=== PATIENT | female | born 1960 | race African-American/Black ===

== ENCOUNTER → 2017-05-29 | Outpatient (CLI) | payer BC, OTHER ==
[2017-05-29 19:21] LABS: BASOPHILS % (AUTO) 0.8 %; EOSINOPHILS # (AUTO) 0.1 10^3/uL (0.0-0.7); EOSINOPHILS % (AUTO) 2.9 %; HCT - HEMATOCRIT 39.4 % (37.0-47.0); HGB - HEMOGLOBIN 13.1 g/dL (12.0-16.0); LYMPHOCYTES # (AUTO) 1.4 10^3/uL (1.5-3.5); LYMPHOCYTES % (AUTO) 35.6 %; MEAN CORPUSCULAR HEMOGLOBIN 28.4 pg (27.0-31.0); MEAN CORPUSCULAR HGB CONC 33.2 g/dL (32.0-36.0); MEAN CORPUSCULAR VOLUME 85.6 fL (81.0-99.0); MEAN PLATELET VOLUME 8.7 fL (7.9-10.8); MONOCYTES # (AUTO) 0.3 10^3/uL (0.0-1.0); MONOCYTES % (AUTO) 8.2 %; NEUTROPHILS % (AUTO) 52.5 %; RED CELL DISTRIBUTION WIDTH 15.4 % (12.0-15.0); UNCORRECTED WHITE BLOOD COUNT 3.8 x10^3/uL; WHITE BLOOD COUNT 3.8 x10^3/uL (4.8-10.8)
[2017-05-29 19:44] LABS: ALBUMIN/GLOBULIN RATIO 1.2 (1.0-2.2); BILIRUBIN,TOTAL 0.7 mg/dL (0.2-1.0); BUN - BLOOD UREA NITROGEN 16 mg/dL (6-20); CARBON DIOXIDE - CO2 29 mmol/L (21-32); CHLORIDE 106 mmol/L (101-111); CHOL/HDL RATIO 3.3 (<4.4); CHOLESTEROL 202 mg/dL; CREATININE 0.8 mg/dL (0.4-1.0); GFR - MDRD 74 (>89); GLUCOSE 95 mg/dL (70-100); HDL CHOLESTEROL 61 mg/dL; LDL/HDL RATIO 2.2 (<4.4); POTASSIUM 3.4 mmol/L (3.5-5.0); SODIUM 142 mmol/L (135-145); TOTAL PROTEIN 7.1 g/dL (6.7-8.2); TRIGLYCERIDES 46 mg/dL; VLDL CHOLESTEROL 9 mg/dL
== END ==
LOC: LAB.WCP 08:24
PROVIDERS: ATTEND Family Medicine
DX: E66.9 Obesity, unspecified (principal); I10 Essential (primary) hypertension; F32.9 Major depressive disorder, single episode, unspecified; F90.0 Attention-deficit hyperactivity disorder, predominantly inattentive type; M51.86 Other intervertebral disc disorders, lumbar region
CPT/HCPCS: 36415; 80053; 80061; 84443; 85025

== ENCOUNTER 2017-06-12 19:39 | Emergency (ER) | payer BC, OTHER ==
[2017-06-12 19:53] VITALS: BP 171/100
--- NOTE | 2017-06-12 20:27 | ED Physician Documentation ---
PD HPI OPHTHO - Stated complaint Stated Complaint: SWOLLENS LEFT EYE - Chief complaint Chief Complaint: Heent - History obtained from History obtained from: Patient - History of Present Illness Timing - onset: Enter time (19:00), Today Timing - details: Abrupt onset Location: Left Quality / character: Burning Associated symptoms: Redness, Tearing Contributing factors: Chemical exposure, base Recently seen: Not recently seen - Additional information Additional information: approximately 7 PM tonight, patient was using chemical product on her hair ( "hair relaxant"; per patient, contains lye) when some of this got into her left eye. C/O burning pain, tearing Review of Systems Eyes: reports: Irritation. denies: Loss of vision, Decreased vision, Photophobia, Discharge PD PAST MEDICAL HISTORY - Past Medical History Cardiovascular: Hypertension Endocrine/Autoimmune: HyPOthyroidism - Present Medications Home Medications: Ambulatory Orders Medication Instructions Recorded Confirmed Escitalopram [Lexapro] 10 mg PO DAILY 06/12/17 06/12/17 Hydrochlorothiazide 25 mg PO ONCE 06/12/17 06/12/17 Levothyroxine [Synthroid] 75 mcg PO QDAC 06/12/17 06/12/17 Losartan [Cozaar] 50 mg PO DAILY 06/12/17 06/12/17 cloNIDine [Catapres] 0.1 mg PO ONCE 06/12/17 06/12/17 - Allergies Allergies/Adverse Reactions: Allergies Allergy/AdvReac Type Severity Reaction Status Date / Time No Known Drug Allergies Allergy Verified 06/12/17 19:53 PD ED PE NORMAL - Vitals Vital signs reviewed: Yes - General General: Alert and oriented X 3, No acute distress, Well developed/nourished - HEENT HEENT: PERRL, EOMI PD ED PE EXPANDED - HEENT HEENT: PERRL, EOMI - Eyes Eyes: Injected conj/sclera (mild left conjunctival injection) Results - Vitals Vitals: Vital Signs - 24 hr 06/12/17 19:42 Temperature 36.0 C L Heart Rate 78 Respiratory 16 Rate Blood Pressure 171/100 H O2 Saturation 98 Oxygen O2 Source Room air PD MEDICAL DECISION MAKING - ED course Complexity details: re-evaluated patient, considered differential, d/w patient ED course: pH (using Hydrion test paper) of left eye is 8-9 range after 1.5 liters irrigation (poison control recommended not using Lew lens). After another 1 liter irrigation (NS), repeat pH testing was 7-8 range. Patient felt well and was thus discharged. Departure - Departure Disposition: 01 Home, Self Care Clinical Impression: Chemical exposure of eye Condition: Good Instructions: ED Chemical Conjunctivitis Follow-Up: Gonsalo Carey MD [Primary Care Provider] - Discharge Date/Time: 06/12/17 21:27
== END 2017-06-12 21:27 | disposition home or self-care (01) ==
LOC: ED 19:39
DX: Z77.098 Contact with and (suspected) exposure to other hazardous, chiefly nonmedicinal, chemicals (principal); I10 Essential (primary) hypertension
CPT/HCPCS: 99283

== ENCOUNTER 2017-10-04 09:29 | Outpatient (CLI) | payer BC, OTHER ==
[2017-10-04 13:24] LABS: BASOPHILS % (AUTO) 0.9 %; EOSINOPHILS # (AUTO) 0.1 10^3/uL (0.0-0.7); EOSINOPHILS % (AUTO) 3.5 %; HGB - HEMOGLOBIN 13.3 g/dL (12.0-16.0); LYMPHOCYTES # (AUTO) 1.6 10^3/uL (1.5-3.5); MEAN CORPUSCULAR HEMOGLOBIN 28.4 pg (27.0-31.0); MEAN CORPUSCULAR HGB CONC 34.2 g/dL (32.0-36.0); MEAN CORPUSCULAR VOLUME 82.9 fL (81.0-99.0); MEAN PLATELET VOLUME 8.7 fL (7.9-10.8); MONOCYTES # (AUTO) 0.3 10^3/uL (0.0-1.0); MONOCYTES % (AUTO) 8.6 %; NEUTROPHILS # (AUTO) 1.5 10^3/uL (1.5-6.6); NUCLEATED RED BLOOD CELLS AUTO 0.1 /100WBC; RED CELL DISTRIBUTION WIDTH 13.7 % (12.0-15.0); UNCORRECTED WHITE BLOOD COUNT 3.5 x10^3/uL; WHITE BLOOD COUNT 3.5 x10^3/uL (4.8-10.8)
[2017-10-04 13:47] LABS: ALBUMIN/GLOBULIN RATIO 1.2 (1.0-2.2); BILIRUBIN,TOTAL 0.5 mg/dL (0.2-1.0); BUN - BLOOD UREA NITROGEN 18 mg/dL (6-20); CALCIUM 9.1 mg/dL (8.5-10.3); CARBON DIOXIDE - CO2 27 mmol/L (21-32); CHLORIDE 105 mmol/L (101-111); CHOL/HDL RATIO 3.5 (<4.4); CHOLESTEROL 190 mg/dL; CREATININE 0.8 mg/dL (0.4-1.0); GFR - MDRD 90 (>89); GLUCOSE 111 mg/dL (70-100); HDL CHOLESTEROL 54 mg/dL; IRON 68 ug/dL (28-170); LDL/HDL RATIO 2.2 (<4.4); POTASSIUM 2.8 mmol/L (3.5-5.0); SODIUM 138 mmol/L (135-145); TOTAL IRON BINDING CAPACITY 344 ug/dL (250-450); TOTAL PROTEIN 7.3 g/dL (6.7-8.2); TRANSFERRIN 246 mg/dL (192-382); TRIGLYCERIDES 84 mg/dL; VLDL CHOLESTEROL 17 mg/dL
[2017-10-04 13:59] LABS: THYROID STIMULATING HORMONE 0.25 uIU/mL (0.34-5.60)
[2017-10-04 14:07] LABS: FERRITIN 36.6 ng/mL (11.0-306.8)
[2017-10-04 14:11] LABS: HEMOGLOBIN A1C 0.69 g/dL; INR 1.1 (0.8-1.2)
== END 2017-10-04 09:30 | disposition home or self-care (01) ==
LOC: LAB.WCP 09:29
PROVIDERS: ATTEND Surgery
DX: E46 Unspecified protein-calorie malnutrition (principal); E63.9 Nutritional deficiency, unspecified
CPT/HCPCS: 36415; 80053; 80061; 82306; 82607; 82728; 82746; 83036; 83540; 84425; 84443; 84466; 84481; 85025; 85610; 85730

== ENCOUNTER 2017-12-20 08:00 | Outpatient (CLI) | payer BC, OTHER ==
[2017-12-20 19:05] LABS: ALBUMIN 3.9 g/dL (3.2-5.5); ALBUMIN/GLOBULIN RATIO 1.2 (1.0-2.2); ALKALINE PHOSPHATASE 58 IU/L (42-121); ALT ALANINE AMINOTRANSFERASE 37 IU/L (10-60); AST ASPARTATE AMINOTRANSFERASE 29 IU/L (10-42); BILIRUBIN,TOTAL 0.7 mg/dL (0.2-1.0); BUN - BLOOD UREA NITROGEN 18 mg/dL (6-20); CALCIUM 9.2 mg/dL (8.5-10.3); CARBON DIOXIDE - CO2 26 mmol/L (21-32); CHLORIDE 102 mmol/L (101-111); CREATININE 0.7 mg/dL (0.4-1.0); GFR - MDRD 105 (>89); GLUCOSE 91 mg/dL (70-100); SODIUM 138 mmol/L (135-145); TOTAL PROTEIN 7.2 g/dL (6.7-8.2)
[2017-12-20 19:18] LABS: THYROID STIMULATING HORMONE 0.17 uIU/mL (0.34-5.60)
[2017-12-20 20:16] LABS: FREE T4 (FREE THYROXINE) 0.96 ng/dL (0.58-1.64)
== END 2017-12-20 08:01 | disposition home or self-care (01) ==
LOC: LAB.WCP 08:00
PROVIDERS: ATTEND Physician Assistant Medical
DX: I10 Essential (primary) hypertension (principal); E04.1 Nontoxic single thyroid nodule
CPT/HCPCS: 36415; 80053; 84439; 84443

== ENCOUNTER 2018-03-13 13:02 | Outpatient (CLI) | payer BC, OTHER | END 2018-03-13 13:03 | disposition home or self-care (01) | LOC: SC 13:02 | PROVIDERS: ATTEND Internal Medicine Pulmonary Disease | DX: G47.33 Obstructive sleep apnea (adult) (pediatric) (principal) | CPT/HCPCS: 99203; 99212 ==

== ENCOUNTER 2018-07-16 19:11 | Outpatient (CLI) | payer BC, OTHER | END 2018-07-16 19:12 | disposition home or self-care (01) | LOC: SC 19:11 | PROVIDERS: ATTEND Internal Medicine Pulmonary Disease | DX: G47.33 Obstructive sleep apnea (adult) (pediatric) (principal) | CPT/HCPCS: 95810 ==

== ENCOUNTER 2018-07-26 14:16 | Outpatient (CLI) | payer BC, OTHER | END 2018-07-26 14:17 | disposition home or self-care (01) | LOC: SC 14:16 | PROVIDERS: ATTEND Internal Medicine Pulmonary Disease | DX: G47.33 Obstructive sleep apnea (adult) (pediatric) (principal) | CPT/HCPCS: 99212; 99213 ==

== ENCOUNTER 2018-08-15 13:42 | Outpatient (CLI) | payer BC, OTHER ==
[2018-08-15 19:47] LABS: CALCIUM 9.2 mg/dL (8.5-10.3); CREATININE 0.7 mg/dL (0.4-1.0)
== END 2018-08-15 13:43 | disposition home or self-care (01) ==
LOC: LAB.WCP 13:42
PROVIDERS: ATTEND Family Medicine
DX: I10 Essential (primary) hypertension (principal); Z86.79 Personal history of other diseases of the circulatory system
CPT/HCPCS: 36415; 80048

== ENCOUNTER 2018-11-01 08:00 | Outpatient (CLI) | payer BC, OTHER ==
[2018-11-01 13:29] LABS: CALCIUM 9.1 mg/dL (8.5-10.3); CREATININE 0.8 mg/dL (0.4-1.0)
[2018-11-01 13:47] LABS: THYROID STIMULATING HORMONE 0.9 uIU/mL (0.34-5.60)
[2018-11-01 13:49] LABS: FREE T4 (FREE THYROXINE) 1.16 ng/dL (0.58-1.64)
== END 2018-11-01 23:59 | disposition home or self-care (01) ==
LOC: LAB.WCP 08:00
PROVIDERS: ATTEND Family Medicine
DX: I10 Essential (primary) hypertension (principal); E03.9 Hypothyroidism, unspecified
CPT/HCPCS: 36415; 80048; 82088; 84244; 84439; 84443

== ENCOUNTER 2018-11-17 11:32 | Outpatient (CLI) | payer BC, OTHER ==
[2018-11-17] MEDS ORDERED: IOVERSOL 320 100 ML VIAL IVP ONE ×2 (12:11)
--- NOTE | 2018-11-19 12:39 | CT Report ---
Reason: HYPERALDOSTERONISM, HYPOKALEMIA, HTN Procedure Date: 11/17/2018 Accession Number: [id number] / [id number] Procedure: CT - Abdomen/Pelvis W/WO CPT Code: FULL RESULT: EXAM: CT ABDOMEN WITHOUT AND WITH CONTRAST EXAM DATE: 11/17/2018 12:33 PM. HISTORY: Hyperaldosteronism, hypokalemia, hypertension. COMPARISON: None. TECHNIQUE: Routine helical CT imaging was performed through the abdomen before and after administration of IV contrast: Optiray 320 100mL. Adrenal mass protocol was used. Enteric contrast: No. Reconstruction: Coronal and sagittal. In accordance with CT protocol optimization, one or more of the following dose reduction techniques were utilized for this exam: automated exposure control, adjustment of mA and/or KV based on patient size, or use of iterative reconstructive technique. FINDINGS: Lung Bases: Unremarkable. Liver: Normal. No masses. Gallbladder/Bile Ducts: Unremarkable. Spleen: Normal. Pancreas: Normal. No masses or ductal obstruction. Adrenal Glands: There is a 1.9 x 1.2 cm left adrenal nodule with slight enhancement. Hounsfield units are supportive of adenoma. Kidneys: Bilateral renal cysts. No masses or hydronephrosis. Peritoneal Cavity/Bowel: Normal. No free fluid, free air or adenopathy. No masses or acute inflammatory process. Vasculature: No aneurysms or other significant abnormality. Bones: 5 mm anterolisthesis of L4 on L5. Other: None. IMPRESSION: 1.9 cm left adrenal nodule, noncontrast Hounsfield units are compatible with imaging criteria for adenoma. Given the provided history, this potentially represents a functional adrenal adenoma. Invasive image-guided adrenal vein sampling by IR can be used if endocrinology workup is inconclusive regarding primary versus secondary hyperaldosteronism and/or lateralization as necessary for surgical planning. RADIA
== END 2018-11-17 11:33 | disposition home or self-care (01) ==
LOC: DI 11:32
PROVIDERS: ATTEND Family Medicine
DX: D35.02 Benign neoplasm of left adrenal gland (principal); E26.9 Hyperaldosteronism, unspecified; E87.6 Hypokalemia; R03.0 Elevated blood-pressure reading, without diagnosis of hypertension
CPT/HCPCS: 74178; Q9967

== ENCOUNTER 2019-08-20 10:44 | Outpatient (CLI) | payer BC, OTHER ==
--- NOTE | 2019-08-20 11:18 | SLEEP CARE CONSULTATION ---
Information from patient questionnaire entered by Jeny Cutler. I have reviewed and concur with the information entered by Jeny Cutler. This document represents the service I personally performed and the decisions made by me, Roger Roldan MD, [facility]. History of Present Illness Previous diagnosis: Mild, Obstructive Sleep Apnea-Hypopnea Syndrome AHI: 8.1 Reason for CPAP/BiPAP follow up: annual Equipment type: CPAP Equipment obtained from: [facility] Prior sleep studies: Yes Year and Where: 2017 [facility] HPI additional information: HPI: Ms. Mayes returned today for follow up of nasal CPAP therapy. She was diagnosed to have mild obstructive sleep apnea-hypopnea syndrome. The patient wears with a nasal mask. She reports using the device nightly and all through the night. The compliance data show usage in 179 out of the past 180 nights, averaging 5.6 hours a night. She complained of no particular problem with the device such as soreness on the face, dry nose, epistaxis, nasal congestion or headache. She thinks that the pressure of 5 - 15 is comfortable. On the CPAP therapy she notices improvement in her sleep quality, and that she wakes up feeling fresher in the morning and more awake/alert during the day. The Lane Sleepiness Scale score 3. Her notices no snore at all. The average residual AHI is 3.5; and average time in large leak per day is 14.5 minutes. The 90th percentile pressure is 14.6 cmH2O. CPAP Compliance Data - Data Reviewed with Patient Average duration of nightly device use: 5h 39m Compliance rate %: 79.4 Current pressure setting (cmH2O): 5-15 Humidity settin Heated hose settin Subjective Current pressure setting perceived as: comfortable Initial Lane Sleepiness Scale score: [address] Sleepiness Scale score: 3 Allergies and Home Medications Drug allergies reviewed: Yes Home medication list reviewed: Yes Allergy and home medication list: Meds: Adderall, levothyroxine, Lexapro, losartan, amlodipine, clonidine, potassium chloride Review of Systems Review of systems same as previous: Yes Physical Exam Height: 5 ft 2.5 in Weight: 297 lb Body Mass Index: 53.4 BMI Classification: Obesity Class 3 Nasal exam: positive: other. negative: scabs Mood/affect: normal Impression and Plan IMPRESSION: 1. Obstructive Sleep Apnea-Hypopnea Syndrome, mild, with the patient continuing to do well on nasal CPAP therapy. She has excellent compliance and significant clinical improvement. The current pressure appears effective and comfortable. Overall, she is very satisfied with treatment and plans to continue with it long-term. No adjustment is necessary today. PLAN: 1. Continue with autoCPAP set at 5 - 15 cmH2O. 2. Try to lose weight. Bariatric surgery appears indicated. 3. Try ResMed N30i mask and Respironics DreamWear nasal cushion mask. 4. Return in one year for follow up or earlier if there is any problem with the treatment. I spent 100% of this 20 minute visit face to face with the patient with greater than 50% of this was spent time counseling the patient and coordination of care.
== END 2019-08-20 10:45 | disposition home or self-care (01) ==
LOC: SC 10:44
PROVIDERS: ATTEND Internal Medicine Pulmonary Disease
DX: G47.33 Obstructive sleep apnea (adult) (pediatric) (principal); E66.9 Obesity, unspecified; Z68.43 Body mass index [BMI] 50.0-59.9, adult
CPT/HCPCS: 99212; 99213

== ENCOUNTER 2019-11-05 08:00 | Outpatient (CLI) | payer BC, OTHER ==
[2019-11-05 14:53] LABS: ALBUMIN 4.1 g/dL (3.2-5.5); ALBUMIN/GLOBULIN RATIO 1.2 (1.0-2.2); BILIRUBIN,TOTAL 0.9 mg/dL (0.2-1.0); CREATININE 0.6 mg/dL (0.4-1.0); TOTAL PROTEIN 7.6 g/dL (6.7-8.2)
[2019-11-05 15:06] LABS: BASOPHILS % (AUTO) 1.1 %; EOSINOPHILS # (AUTO) 0.1 10^3/uL (0.0-0.7); EOSINOPHILS % (AUTO) 3.6 %; HGB - HEMOGLOBIN 13.5 g/dL (12.0-16.0); LYMPHOCYTES # (AUTO) 1.4 10^3/uL (1.5-3.5); MEAN CORPUSCULAR HGB CONC 30.7 g/dL (32.0-36.0); MEAN PLATELET VOLUME 10.7 fL (7.9-10.8); MONOCYTES # (AUTO) 0.3 10^3/uL (0.0-1.0); MONOCYTES % (AUTO) 8.9 %; NEUTROPHILS # (AUTO) 1.7 10^3/uL (1.5-6.6); NEUTROPHILS % (AUTO) 48.1 %; PLT - PLATELET COUNT 269 10^3/uL (130-450); RED CELL DISTRIBUTION WIDTH 13.6 % (12.0-15.0); WHITE BLOOD COUNT 3.6 x10^3/uL (4.8-10.8)
== END 2019-11-05 23:59 ==
LOC: LAB.WCP 08:00
PROVIDERS: ATTEND Family Medicine
DX: I10 Essential (primary) hypertension (principal); E26.9 Hyperaldosteronism, unspecified; E03.9 Hypothyroidism, unspecified
CPT/HCPCS: 36415; 80053; 84443; 85025

== ENCOUNTER 2019-12-10 11:27 | Outpatient (CLI) | payer BC, OTHER ==
[2019-12-10 19:13] LABS: CALCIUM 9.5 mg/dL (8.5-10.3); CREATININE 0.7 mg/dL (0.4-1.0)
== END 2019-12-10 23:59 | disposition home or self-care (01) ==
LOC: LAB.WCP 11:27
PROVIDERS: ATTEND Family Medicine
DX: E26.9 Hyperaldosteronism, unspecified (principal); E87.6 Hypokalemia; I10 Essential (primary) hypertension
CPT/HCPCS: 36415; 80048

== ENCOUNTER 2020-01-30 10:33 | Outpatient (CLI) | payer BC, OTHER ==
--- NOTE | 2020-01-31 08:57 | Mammography Report ---
Reason: ROUTINE MAMMO Procedure Date: 01/30/2020 Accession Number: [id number] / [id number] Procedure: MARGARETTE - Screening Mammo w/Crow CPT Code: Final Report FULL RESULT: EXAM: Screening Mammo w/Crow DATE: 01/30/2020 1:19 PM CLINICAL HISTORY: Screening encounter. History of benign right breast biopsy. History of early menses. Family history of breast cancer in the mother at the age of 54. TECHNIQUE: (B) - Bilateral CC and MLO views were obtained. COMPARISON: None PARENCHYMAL PATTERN: (F) - The breast(s) demonstrate(s) diffuse fatty replacement. FINDINGS: There are no suspicious masses, calcifications, or areas of distortion. IMPRESSION: Negative examination. BI-RADS category 1. RECOMMENDATION: (ANNUAL) - Recommend routine annual screening mammography. BI-RADS CATEGORY: (1) - Negative. STANDARD QUALIFYING STATEMENTS: 1. This examination was not reviewed with the aid of Computer-Aided Detection (CAD). 2. A negative or benign imaging report should not preclude biopsy if clinically suspicious findings are present. 3. Dense breasts may obscure an underlying neoplasm. 4. This examination was reviewed with the aid of 3D breast imaging (tomosynthesis).
== END 2020-01-30 10:34 | disposition home or self-care (01) ==
LOC: DI 10:33
PROVIDERS: ATTEND Family Medicine
DX: Z12.31 Encounter for screening mammogram for malignant neoplasm of breast (principal); Z80.3 Family history of malignant neoplasm of breast
CPT/HCPCS: 77063; 77067

== ENCOUNTER 2020-02-26 19:10 | Outpatient (CLI) | payer BC, OTHER | END 2020-02-26 19:11 | disposition home or self-care (01) | LOC: COV 19:10 | PROVIDERS: ATTEND Family Medicine | DX: R05 Cough (principal) | CPT/HCPCS: 81599 ==

== ENCOUNTER 2020-08-27 11:24 | Outpatient (CLI) | payer BC, OTHER ==
[2020-08-27 11:27] LABS: BASOPHILS # (AUTO) 0.1 10^3/uL (0.0-0.1); BASOPHILS % (AUTO) 1.2 %; EOSINOPHILS # (AUTO) 0.1 10^3/uL (0.0-0.7); HGB - HEMOGLOBIN 13.5 g/dL (12.0-16.0); LYMPHOCYTES # (AUTO) 1.4 10^3/uL (1.5-3.5); LYMPHOCYTES % (AUTO) 33.9 %; MEAN CORPUSCULAR HEMOGLOBIN 29.3 pg (27.0-31.0); MEAN CORPUSCULAR VOLUME 91.5 fL (81.0-99.0); MEAN PLATELET VOLUME 9.5 fL (7.9-10.8); MONOCYTES # (AUTO) 0.3 10^3/uL (0.0-1.0); MONOCYTES % (AUTO) 8.5 %; NEUTROPHILS # (AUTO) 2.1 10^3/uL (1.5-6.6); NEUTROPHILS % (AUTO) 53.2 %; PLT - PLATELET COUNT 258 10^3/uL (130-450); RED BLOOD COUNT 4.61 10^6/uL (4.20-5.40); RED CELL DISTRIBUTION WIDTH 12.5 % (12.0-15.0)
[2020-08-27 11:47] LABS: ALBUMIN 4.4 g/dL (3.2-5.5); ALBUMIN/GLOBULIN RATIO 1.4 (1.0-2.2); ALKALINE PHOSPHATASE 44 IU/L (42-121); ALT ALANINE AMINOTRANSFERASE 24 IU/L (10-60); AST ASPARTATE AMINOTRANSFERASE 18 IU/L (10-42); BILIRUBIN,TOTAL 0.9 mg/dL (0.2-1.0); BUN - BLOOD UREA NITROGEN 18 mg/dL (6-20); CALCIUM 9.3 mg/dL (8.5-10.3); CARBON DIOXIDE - CO2 26 mmol/L (21-32); CHLORIDE 105 mmol/L (101-111); CHOLESTEROL 217 mg/dL; CREATININE 0.9 mg/dL (0.4-1.0); GLUCOSE 130 mg/dL (70-100); HDL CHOLESTEROL 54 mg/dL; LDL CHOLESTEROL,CALCULATED 146 mg/dL; LDL/HDL RATIO 2.7 (<4.4); SODIUM 140 mmol/L (135-145); TOTAL PROTEIN 7.6 g/dL (6.7-8.2); VLDL CHOLESTEROL 17 mg/dL
--- NOTE | 2020-08-27 15:53 | Ultrasound Report ---
PROCEDURE: Head or Neck Soft Tissue INDICATIONS: THYROID NODULE, POST MENOPAUSAL TECHNIQUE: Real time scanning was performed of the neck region of interest, with image documentation . COMPARISON: None. FINDINGS: There is been a complete thyroidectomy. No suspicious soft tissue nodules in the thyroid be d. No enlarged lymph nodes visible. IMPRESSION: No sonographic evidence of recurrent thyroid nodule. Reviewed by: Juana Valadze MD on 08/27/2020 3:52 PM PDT Approved by: Juana Valadez MD on 08/27/2020 3:52 PM PDT Station ID: [id number]
--- NOTE | 2020-08-27 17:26 | DEXA Report ---
PROCEDURE: Dexa Spine and/or Hip INDICATIONS: THYROID NODULE, POST MENOPAUSAL TECHNIQUE: Dual energy x-ray absorptiometry (DXA) was performed on a [employer] Platform System. Regions measur ed are the AP Spine, femoral neck, and if needed forearm. COMPARISON: None. FINDINGS: Lumbar Spine: Bone Mineral Density 1.376 g/cm/cm,T score 1.6, normal Left Hip: Bone Mineral Density 1.082 g/cm/cm,T score 0.6, normal Left Femoral Neck: Bone Mineral Density 0.902 g/cm/cm, T score -1.0, normal (T score greater or equal to -1.0: NORMAL) (T score from -1.1 to -2.4: OSTEOPENIA) (T score less than or equal to -2.5 to: OSTEOPOROSIS) Impression: Normal bone density. Patients with diagnosis of osteoporosis or osteopenia should have regular bone mineral density assess ment. For those eligible for Medicare, routine testing is allowed once every 2 years. Testing frequ ency can be increased for patients who have rapidly progressing disease or for those who are receivin g medical therapy to restore bone mass. Reviewed by: Aye Kowalski MD, PhD on 08/27/2020 5:25 PM PDT Approved by: Aye Kowalski MD, PhD on 08/27/2020 5:25 PM PDT Station ID: [id number]
== END 2020-08-27 11:25 | disposition home or self-care (01) ==
LOC: DI 11:24
PROVIDERS: ATTEND Physician Assistant Medical
DX: I10 Essential (primary) hypertension (principal); E04.1 Nontoxic single thyroid nodule; E03.9 Hypothyroidism, unspecified; Z78.0 Asymptomatic menopausal state
CPT/HCPCS: 36415; 76536; 77080; 80053; 80061; 83721; 84443; 85025

== ENCOUNTER 2021-03-18 14:14 | Outpatient (CLI) | payer BC, OTHER ==
[2021-03-18 19:06] LABS: ESTIMATED AVERAGE GLUCOSE 143 mg/dL (70-100); HEMOGLOBIN A1c% 6.6 % (4.27-6.07)
[2021-03-18 19:20] LABS: ALBUMIN 4.3 g/dL (3.2-5.5); ALBUMIN/GLOBULIN RATIO 1.3 (1.0-2.2); ALKALINE PHOSPHATASE 43 IU/L (42-121); ALT ALANINE AMINOTRANSFERASE 26 IU/L (10-60); AST ASPARTATE AMINOTRANSFERASE 19 IU/L (10-42); BILIRUBIN,TOTAL 0.7 mg/dL (0.2-1.0); BUN - BLOOD UREA NITROGEN 19 mg/dL (6-20); CALCIUM 9.7 mg/dL (8.5-10.3); CARBON DIOXIDE - CO2 27 mmol/L (21-32); CHLORIDE 106 mmol/L (101-111); CHOL/HDL RATIO 4.6 (<4.4); CHOLESTEROL 230 mg/dL; GFR - MDRD 69 (>89); GLUCOSE 114 mg/dL (70-100); HDL CHOLESTEROL 50 mg/dL; LDL CHOLESTEROL,CALCULATED 165 mg/dL; LDL/HDL RATIO 3.3 (<4.4); POTASSIUM 4.4 mmol/L (3.5-5.0); SODIUM 141 mmol/L (135-145); TOTAL PROTEIN 7.5 g/dL (6.7-8.2); TRIGLYCERIDES 77 mg/dL; VLDL CHOLESTEROL 15 mg/dL
== END 2021-03-18 23:59 | disposition home or self-care (01) ==
LOC: LAB.WCP 14:14
PROVIDERS: ATTEND Physician Assistant Medical
DX: R73.9 Hyperglycemia, unspecified (principal)
CPT/HCPCS: 36415; 80053; 80061; 83036; 83721

== ENCOUNTER 2021-04-12 14:08 | Outpatient (CLI) | payer BC, OTHER ==
--- NOTE | 2021-04-12 17:18 | SLEEP CARE CONSULTATION ---
Information from patient questionnaire entered by Bernadette Garvey. I have reviewed and concur with the information entered by Bernadette Garvey. This document represents the service I personally performed and the decisions made by me, Roger Roldan MD, [facility]. History of Present Illness Service Date and Time: 04/12/2021 1408 Previous diagnosis: Mild, Obstructive Sleep Apnea-Hypopnea Syndrome AHI: 8.1 (in 2018) Reason for follow up: annual (last seen 08/2019) Equipment type: CPAP Equipment obtained from: [facility] Mask style: Nasal Prior sleep studies: Yes Year and Where: 2018 - [facility] Type of Sleep Study: Polysomnography HPI additional information: HPI: Ms. Mayes returned today for annual follow up of nasal CPAP therapy. She was diagnosed to have mild obstructive sleep apnea-hypopnea syndrome. The patient wears with a nasal mask. She continues to use the device nightly and all through the night. The compliance data show usage in 180 out of the past 180 nights, averaging 6.2 hours a night. She complained of cough but no particular problem with the device such as soreness on the face, dry nose, epistaxis, nasal congestion or headache. She thinks that the pressure of 5 - 15 is comfortable. On the CPAP therapy she notices improvement in her sleep quality, and that she wakes up feeling fresher in the morning and more awake/alert during the day. The [place] Sleepiness Scale score 10. The average residual AHI is 3.8; and average time in large leak per day is 22 minutes. The 90th percentile pressure is 15 cmH2O. CPAP Compliance Data - Data Reviewed with Patient Average duration of nightly device use: 6 hr 14 min Compliance rate %: 82.2 (180 days) Current pressure setting (cmH2O): 5-15 Humidity settin Heated hose settin Average residual AHI: 3.8 Average large leak: 22 min 53 sec Subjective Missed days of use due to: reports: family emergency, illness Current pressure setting perceived as: comfortable Initial [place] Sleepiness Scale score: 2 (in 2018) Current [place] Sleepiness Scale score: 10 Allergies and Home Medications Drug allergies reviewed: Yes Home medication list reviewed: Yes Review of Systems Review of systems same as previous: Yes Physical Exam Height: 5 ft 2.5 in Weight: 279 lb Weight change since last visit: -18 Body Mass Index: 50.2 BMI Classification: Morbidly Obese Impression and Plan IMPRESSION: 1. Obstructive Sleep Apnea-Hypopnea Syndrome, mild, with the patient continuing to do well on nasal CPAP therapy. She has excellent compliance and significant clinical improvement. The current pressure appears effective and comfortable. Overall, she is very satisfied with treatment and plans to continue with it long-term. The patient would like to switch durable medical equipment supplier. PLAN: 1. Continue with autoCPAP set at 5 - 15 cmH2O. 2. Try to lose weight. Bariatric surgery appears indicated. 3. Prescription made for CPAP supplies and faxed to [facility]. 4. Return in one year for follow up or earlier if there is any problem with the treatment. Counseling Topics: Weight loss health impact Visit Type: In Office Time Spent with Patient (minutes): 15 Provider Statement: I spent 100% of the Face to Face Visit with the patient with greater than 50% spent counseling the patient and coordination of care.
== END 2021-04-12 14:09 | disposition home or self-care (01) ==
LOC: SC 14:08
PROVIDERS: ATTEND Internal Medicine Pulmonary Disease
DX: G47.33 Obstructive sleep apnea (adult) (pediatric) (principal); E66.01 Morbid (severe) obesity due to excess calories; Z68.43 Body mass index [BMI] 50.0-59.9, adult
CPT/HCPCS: 99212

== ENCOUNTER 2021-05-26 12:34 | Outpatient (CLI) | payer BC, OTHER ==
--- NOTE | 2021-05-26 13:16 | XRAY Report ---
PROCEDURE: Lumbar Spine 2 View INDICATIONS: LUMBAR DISC DISORDER TECHNIQUE: 2 views of the lumbar spine were acquired. COMPARISON: None. FINDINGS: Bones: 5 [id number]-qih-nytizrd vertebrae are present. The lumbar spine has severe facet arthrosis with gr ryan 1 anterolisthesis of L4 over L5. There is disc space narrowing at L4-5. The sacroiliac joints and symphysis pubis have degenerative changes. There is normal bony alignment. No vertebral body compre ssion fractures. No suspicious bony lesions. Soft tissues: Overlying bowel gas pattern is normal. No suspicious soft tissue calcifications. IMPRESSION: 1. Severe facet arthrosis with grade 1 anterolisthesis of L4 over L5. 2. Degenerative disc disease at L4-5. Reviewed by: Dylon Whyte on 05/26/2021 1:15 PM PDT Approved by: Dylon Whyte on 05/26/2021 1:15 PM PDT Station ID: [id number]
== END 2021-05-26 23:59 | disposition home or self-care (01) ==
LOC: DI.N 12:34
PROVIDERS: ATTEND Family Medicine
DX: M47.816 Spondylosis without myelopathy or radiculopathy, lumbar region (principal); M51.36 Other intervertebral disc degeneration, lumbar region; M43.16 Spondylolisthesis, lumbar region; M47.898 Other spondylosis, sacral and sacrococcygeal region

== ENCOUNTER 2021-06-11 14:45 | Outpatient (CLI) | payer BC, OTHER | END 2021-06-11 14:46 | disposition home or self-care (01) | LOC: RT 14:45 | PROVIDERS: ATTEND Psychiatry & Neurology Psychiatry | DX: Z79.899 Other long term (current) drug therapy (principal) | CPT/HCPCS: 93005 ==

== ENCOUNTER 2022-01-18 12:26 | Outpatient (CLI) | payer BC, OTHER ==
[2022-01-18 18:17] LABS: ALBUMIN 4.1 g/dL (3.2-5.5); ALBUMIN/GLOBULIN RATIO 1.2 (1.0-2.2); ALKALINE PHOSPHATASE 40 IU/L (42-121); ALT ALANINE AMINOTRANSFERASE 25 IU/L (10-60); AST ASPARTATE AMINOTRANSFERASE 20 IU/L (10-42); BILIRUBIN,TOTAL 0.7 mg/dL (0.2-1.0); BUN - BLOOD UREA NITROGEN 19 mg/dL (6-20); CALCIUM 9.9 mg/dL (8.5-10.3); CARBON DIOXIDE - CO2 28 mmol/L (21-32); CHLORIDE 106 mmol/L (101-111); CHOL/HDL RATIO 3.7 (<4.4); CHOLESTEROL 203 mg/dL; CREATININE 0.9 mg/dL (0.4-1.0); GFR - MDRD 77 (>89); GLUCOSE 130 mg/dL (70-100); HDL CHOLESTEROL 55 mg/dL; LDL CHOLESTEROL,CALCULATED 137 mg/dL; LDL/HDL RATIO 2.5 (<4.4); POTASSIUM 4.9 mmol/L (3.5-5.0); SODIUM 142 mmol/L (135-145); TOTAL PROTEIN 7.5 g/dL (6.7-8.2); TRIGLYCERIDES 57 mg/dL; VLDL CHOLESTEROL 11 mg/dL
[2022-01-18 18:26] LABS: CREATININE,URINE 234.8 mg/dL; MICROALBUM/CREATININE RATIO,UR 12.8 ug/mg (<30.0)
[2022-01-18 20:43] LABS: ESTIMATED AVERAGE GLUCOSE 143 mg/dL (70-100); HEMOGLOBIN A1c% 6.6 % (4.27-6.07)
== END 2022-01-18 12:27 | disposition home or self-care (01) ==
LOC: LAB.N 12:26
PROVIDERS: ATTEND Physician Assistant Medical
DX: E11.9 Type 2 diabetes mellitus without complications (principal)
CPT/HCPCS: 36415; 80053; 80061; 82043; 82570; 83036; 83721

== ENCOUNTER 2022-03-29 20:15 | Outpatient (CLI) | payer BC, OTHER ==
--- NOTE | 2022-03-30 08:50 | Ultrasound Report ---
PROCEDURE: Duplex Ext Veins Left INDICATIONS: SUPERFICIAL THROMBOPHLEBITIS TECHNIQUE: Real-time imaging, as well as color and pulse Doppler interrogation, were performed of the lower extr emity deep veins from the inguinal ligament to the popliteal fossa. COMPARISON: None. FINDINGS: The deep veins are normally compressible, and free of intraluminal thrombus. Color and pu lse Doppler demonstrate normal phasic intraluminal flow. There is normal augmentation response to di stal compression maneuver. 1.2 x 1.1 x 1.4 cm hypoechoic lesion in the popliteal fossa, which may reflect a Ralph's cyst. IMPRESSION: No evidence of DVT. Reviewed by: Pavel Mitchell MD on 03/30/2022 8:49 AM PDT Approved by: Pavel Mitchell MD on 03/30/2022 8:49 AM PDT Station ID: [id number]
== END 2022-03-29 20:16 | disposition home or self-care (01) ==
LOC: DI 20:15
PROVIDERS: ATTEND Family Medicine
DX: I80.9 Phlebitis and thrombophlebitis of unspecified site (principal)

== ENCOUNTER 2022-09-08 12:27 | Outpatient (CLI) | payer BC, OTHER ==
[2022-09-08 17:58] LABS: ALBUMIN 4.1 g/dL (3.2-5.5); ALBUMIN/GLOBULIN RATIO 1.2 (1.0-2.2); BILIRUBIN,TOTAL 0.6 mg/dL (0.2-1.0); CALCIUM 9.8 mg/dL (8.5-10.3); CREATININE 0.9 mg/dL (0.4-1.0); POTASSIUM 4.3 mmol/L (3.5-5.0); TOTAL PROTEIN 7.4 g/dL (6.7-8.2)
[2022-09-08 20:27] LABS: ESTIMATED AVERAGE GLUCOSE 146 mg/dL (70-100); HEMOGLOBIN A1c% 6.7 % (4.27-6.07)
== END 2022-09-08 12:28 | disposition home or self-care (01) ==
LOC: LAB.N 12:27
PROVIDERS: ATTEND Physician Assistant Medical
DX: E11.9 Type 2 diabetes mellitus without complications (principal)
CPT/HCPCS: 36415; 80053; 83036

== ENCOUNTER 2022-10-17 13:30 | Outpatient (CLI) | payer BC, OTHER ==
[2022-10-17 14:44] VITALS: BP 110/60
--- NOTE | 2022-10-17 14:44 | SLEEP CARE CONSULTATION ---
Information from patient questionnaire entered by Frank Doss. I have reviewed and concur with the information entered by Frank Doss. This document represents the service I personally performed and the decisions made by me, Roger Roldan MD, [facility]. History of Present Illness Service Date and Time: 10/17/2022 1330 Previous diagnosis: Mild, Obstructive Sleep Apnea-Hypopnea Syndrome AHI: 8.1 (in 2018) Reason for follow up: annual (LAST SEEN 03/2021) Equipment type: CPAP (DREAM STATION) Equipment obtained from: [facility] Mask style: Nasal Prior sleep studies: Yes Year and Where: 2017 - [facility] Type of Sleep Study: Polysomnography HPI additional information: Ms. Mayes returned today for annual follow up of nasal CPAP therapy. She was diagnosed to have mild obstructive sleep apnea-hypopnea syndrome. The patient wears with a nasal mask. She continues to use the device nightly and all through the night. Her current device is a [employer] DreamStation 2 which replaces her DreamStation 1 that was recalled. The compliance data show usage in 123 out of the past 180 nights, averaging 6.6 hours a night. There appears to be a 6-week gap between her old and new machines. The patient said she used the old machine all the way up to her new one. She complained of cough but no particular problem with the device such as soreness on the face, dry nose, epistaxis, nasal congestion or headache. She thinks that the pressure of 5 15 cmH2O is comfortable. On the CPAP therapy she notices improvement in her sleep quality, and that she wakes up feeling fresher in the morning and more awake/alert during the day. The [place] Sleepiness Scale score 2 (was 10). The average residual AHI is 5.6; and average time in large leak per day is 1 hour and 12 minutes. The 90th percentile pressure is 15 cmH2O. [employer] is her durable medical supplier. Sleep Study - Results Type of Sleep Study: Polysomnography Prior sleep studies: Yes Year and Where: 2017 - [facility] CPAP Compliance Data - Data Reviewed with Patient Average duration of nightly device use: 6HRS 37MIN 46SEC Compliance rate %: 72.2 (04/14/2022-10/10/2022) Current pressure setting (cmH2O): 5-15 Average residual AHI: 5.6 Subjective Initial [place] Sleepiness Scale score: 2 (in 2018) Current [place] Sleepiness Scale score: 2 (10/17/22) Allergies and Home Medications Drug allergies reviewed: Yes Home medication list reviewed: Yes Allergy and home medication list: Allergies No Known Drug Allergies Allergy (Verified 06/12/17 19:53) Review of Systems Review of systems same as previous: Yes Physical Exam Vital signs obtained and entered by: FRANK Biggs MA Blood Pressure: 110/60 (LEFT ARM) Cuff size: long Heart Rate: 66 O2 Saturation: 99 Height: 5 ft 2.5 in Weight: 266 lb 6.4 oz Body Mass Index: 47.9 BMI Classification: Morbidly Obese Impression and Plan IMPRESSION: 1. Obstructive Sleep Apnea-Hypopnea Syndrome, mild, with the patient continuing to do well on nasal CPAP therapy. She has excellent compliance and significant clinical improvement. The current pressure appears slightly ineffective but comfortable. Overall, she is very satisfied with treatment and plans to continue with it long-term. Because the residual AHI is slightly elevated, I will raise the starting pressure from 5 to 8 cmH2O. She may want to use the ramp. PLAN: 1. Raise the pressure slightly to 8 - 15 cmH2O. 2. Try to lose more weight. 3. Return in one year for follow up or earlier if there is any problem. Adjust device pressure to (cmH2O): 8 - 15 Counseling Topics: Weight control Follow up with Sleep Care in: 1 year Follow up recommended for: Weight management Visit Type: In Office Time Spent with Patient (minutes): 15 Provider Statement: I spent 100% of the Face to Face Visit with the patient with greater than 50% spent counseling the patient and coordination of care.
== END 2022-10-17 13:31 | disposition home or self-care (01) ==
LOC: SC 13:30
PROVIDERS: ATTEND Internal Medicine Pulmonary Disease
DX: G47.33 Obstructive sleep apnea (adult) (pediatric) (principal); E66.01 Morbid (severe) obesity due to excess calories; Z68.42 Body mass index [BMI] 45.0-49.9, adult
CPT/HCPCS: 99212

== ENCOUNTER 2022-10-28 08:00 | Outpatient (CLI) | payer BC, OTHER | END 2022-10-28 23:59 | disposition home or self-care (01) | LOC: LAB.N 08:00 | PROVIDERS: ATTEND Family Medicine | DX: J34.0 Abscess, furuncle and carbuncle of nose (principal) | CPT/HCPCS: 87070; 87077; 87181; 87205 ==

== ENCOUNTER 2023-03-01 10:19 | Outpatient (CLI) | payer BC, OTHER ==
[2023-03-01 11:51] LABS: EOSINOPHILS # (AUTO) 0.1 10^3/uL (0.0-0.7); HCT - HEMATOCRIT 40.6 % (37.0-47.0); HGB - HEMOGLOBIN 12.8 g/dL (12.0-16.0); LYMPHOCYTES # (AUTO) 1.3 10^3/uL (1.5-3.5); MEAN CORPUSCULAR HEMOGLOBIN 28.9 pg (27.0-31.0); MEAN CORPUSCULAR HGB CONC 31.5 g/dL (32.0-36.0); MEAN CORPUSCULAR VOLUME 91.6 fL (81.0-99.0); MEAN PLATELET VOLUME 10.2 fL (7.9-10.8); MONOCYTES # (AUTO) 0.3 10^3/uL (0.0-1.0); MONOCYTES % (AUTO) 8.6 %; NEUTROPHILS # (AUTO) 2.1 10^3/uL (1.5-6.6); NEUTROPHILS % (AUTO) 53.1 %; PLT - PLATELET COUNT 250 10^3/uL (130-450); RED BLOOD COUNT 4.43 10^6/uL (4.20-5.40); WHITE BLOOD COUNT 3.9 x10^3/uL (4.8-10.8)
[2023-03-01 12:07] LABS: ALBUMIN 4.1 g/dL (3.2-5.5); ALBUMIN/GLOBULIN RATIO 1.3 (1.0-2.2); ALKALINE PHOSPHATASE 47 IU/L (42-121); ALT ALANINE AMINOTRANSFERASE 27 IU/L (10-60); AST ASPARTATE AMINOTRANSFERASE 19 IU/L (10-42); BILIRUBIN,TOTAL 0.5 mg/dL (0.2-1.0); BUN - BLOOD UREA NITROGEN 16 mg/dL (6-20); CALCIUM 9.8 mg/dL (8.5-10.3); CARBON DIOXIDE - CO2 28 mmol/L (21-32); CHLORIDE 109 mmol/L (101-111); CHOL/HDL RATIO 2.1 (<4.4); CHOLESTEROL 152 mg/dL; CREATININE 0.9 mg/dL (0.4-1.0); ESTIMATED AVERAGE GLUCOSE 146 mg/dL (70-100); GFR - MDRD 77 (>89); GLUCOSE 146 mg/dL (70-100); HDL CHOLESTEROL 72 mg/dL; HEMOGLOBIN A1c% 6.7 % (4.27-6.07); LDL CHOLESTEROL,CALCULATED 72 mg/dL; POTASSIUM 4.3 mmol/L (3.5-5.0); SODIUM 139 mmol/L (135-145); TOTAL PROTEIN 7.3 g/dL (6.7-8.2); TRIGLYCERIDES 40 mg/dL; VLDL CHOLESTEROL 8 mg/dL
[2023-03-01 12:22] LABS: THYROID STIMULATING HORMONE < 0.08 uIU/mL (0.34-5.60)
[2023-03-01 12:54] LABS: FREE T4 (FREE THYROXINE) 1.21 ng/dL (0.58-1.64)
== END 2023-03-01 10:20 | disposition home or self-care (01) ==
LOC: LAB.N 10:19
PROVIDERS: ATTEND Physician Assistant Medical
DX: E11.9 Type 2 diabetes mellitus without complications (principal); E04.1 Nontoxic single thyroid nodule
CPT/HCPCS: 36415; 80053; 80061; 83036; 83721; 84439; 84443; 85025

== ENCOUNTER 2023-04-06 14:21 | Outpatient (CLI) | payer BC, OTHER ==
[2023-04-06] MEDS ORDERED: iohexoL-300 100 ML VIAL ONE (15:14)
--- NOTE | 2023-04-06 15:15 | MRI Report ---
PROCEDURE: BRAIN WO INDICATIONS: HEADACHE TECHNIQUE: Noncontrast axial T1 spin echo, axial T2 fast spin echo, sagittal and axial FLAIR, coronal T2 fast sp in echo, axial gradient echo, axial diffusion and ADC through the brain. COMPARISON: None. FINDINGS: Image quality: Excellent. CSF Spaces: Basal cisterns are patent. No extra-axial fluid collections. Ventricles are normal in size and shape. Brain: No intracranial masses or hemorrhage. Pires/white matter interface is normal. Brainstem appe ars normal. Diffusion-weighted images demonstrate no acute ischemic insult. No chronic ischemic ins ults. Normal intravascular flow voids are present. Skull and face: Calvarium has normal marrow signal. Orbits appear normal. Sinuses: Sinuses and mastoids are clear. IMPRESSION: 1. No explanation for headache. 2. No acute process. No recent infarct. Reviewed by: Ariela Pizarro MD on 04/06/2023 3:13 PM PDT Approved by: Ariela Pizarro MD on 04/06/2023 3:13 PM PDT Station ID: [id number]
[2023-04-06 15:59] LABS: CREATININE 0.9 mg/dL (0.4-1.0)
[2023-04-06] MEDS ORDERED: iohexoL-300 100 ML VIAL IVP ONE (17:22)
--- NOTE | 2023-04-07 16:20 | Ultrasound Report ---
PROCEDURE: Carotid Doppler Complete INDICATIONS: LIGHTHEADEDNESS TECHNIQUE: Color and pulse Doppler interrogation was performed of both carotid systems, with image documentation and velocity measurements. COMPARISON: None. FINDINGS: Right side: Brachial blood pressure: 133/76 mm Hg. Common carotid artery peak systolic velocity: 80 cm/sec. Internal carotid artery peak systolic velocity: 64 cm/sec. Internal carotid artery end diastolic velocity: 26 cm/sec. External carotid artery peak systolic velocity: 53 cm/sec. ICA/CCA peak systolic ratio: 0.8 . Pires scale imaging description: Mild plaque bifurcates Percent internal carotid artery stenosis: Less than 50%. Vertebral artery: Flow direction is antegrade. Left side: Brachial blood pressure: 131/68 mm Hg. Common carotid artery peak systolic velocity: 73 cm/sec. Internal carotid artery peak systolic velocity: 58 cm/sec. Internal carotid artery end diastolic velocity: 16 cm/sec. External carotid artery peak systolic velocity: 87 cm/sec. ICA/CCA peak systolic ratio: 0.8 . Pires scale imaging description: Mild plaque at the bifurcation Percent internal carotid artery stenosis: Less than 50%. Vertebral artery: Flow direction is antegrade. IMPRESSION: 1. In the right internal carotid artery, there is less than 50% stenosis based on peak systolic veloc ity criteria. 2. In the left internal carotid artery, there is less than 50% stenosis based on peak systolic veloci ty criteria. 3. Antegrade blood flow within the right vertebral artery. 4. Antegrade blood flow within the left vertebral artery. The estimate of stenosis included in the report of the imaging study was calculated using the [facility]-end orsed standards of carotid artery stenosis. Reviewed by: Mona Limon MD on 04/07/2023 4:19 PM PDT Approved by: Mona Limon MD on 04/07/2023 4:19 PM PDT Station ID: [id number]
--- NOTE | 2023-04-10 09:54 | CT Report ---
PROCEDURE: CHEST W INDICATIONS: PULMONARY NODULE CONTRAST: 100mL Omni 300 TECHNIQUE: After the administration of intravenous contrast, 1 mm axial images were acquired from the pulmonary apices through the posterior costophrenic angles. Axial 5 mm soft tissue kernel reconstructions were performed as well as 8 mm axial MIP and coronal and sagittal 5 mm reformations. For radiation dose reduction, the following was used: automated exposure control, adjustment of mA and/or kV according to patient size. COMPARISON: CT 11/17/2018 FINDINGS: Image quality: Excellent. Lungs and pleura: No consolidation. No pleural effusions. No pneumothorax. 7 mm solid nodule in the posterior left upper lobe (series 10, image 33) Mediastinum: Heart size is normal. No pericardial effusions. No mediastinal adenopathy by size criter ia. No large vessel abnormality. Three-vessel coronary calcifications, marked for age Chest wall and lower neck: Thyroid is absent or diminutive. No axillary or supraclavicular adenopathy by size. Bones: No aggressive osseous abnormality. Vertebral hemangioma of the L1 and T8 vertebral bodies. Upper Abdomen: Fluid attenuating renal cysts. 1.5 cm left adrenal nodule which is stable since 2018, therefore statistically benign. IMPRESSION: Note: No chest CT prior was available at time of dictation, despite multiple attempts to obtain prior imaging. If prior imaging becomes available, an addendum can be made to this report. A 7 mm solid nodule in the posterior left upper lobe. Correlate with prior exam, otherwise CT follow- up in 6-12 months is recommended per ACR consensus guidelines. Marked coronary artery calcifications for age. Consider cardiology referral. Reviewed by: Js Thomas on 04/10/2023 8:53 AM C[place] Approved by: Js Thomas on 04/10/2023 8:53 AM C[place] Station ID: [id number]
== END 2023-04-06 14:22 | disposition home or self-care (01) ==
LOC: LAB 14:21
PROVIDERS: ATTEND Physician Assistant Medical
DX: R91.1 Solitary pulmonary nodule (principal); R51.9 Headache, unspecified; I65.23 Occlusion and stenosis of bilateral carotid arteries; I25.10 Atherosclerotic heart disease of native coronary artery without angina pectoris
CPT/HCPCS: 36415; 70551; 71260; 82565; 93880; Q9967

== ENCOUNTER 2023-04-06 14:23 | Outpatient (CLI) | payer BC, OTHER ==
--- NOTE | 2023-04-07 11:29 | Mammography Report ---
BILATERAL DIGITAL SCREENING MAMMOGRAM 3D/2D: 04/06/2023 CLINICAL: Routine screening. Comparison is made to exam dated: 01/30/2020 mammogram - [facility]. There are scattered areas of fibroglandular density in both breasts (category b / 25%-50% glandular t issue). No significant masses, calcifications, or other findings are seen in either breast. There has been no significant interval change. IMPRESSION: NEGATIVE There is no mammographic evidence of malignancy. A 1 year screening mammogram is recommended. Based on the Tyrer Cuzick model (a risk assessment model) the patients lifetime risk is 11.6% and he r 10 year risk is 4.9%. According to the ACR, ACS, and NCCN guidelines, an annual breast MRI exam catina ng with mammogram is recommended if the patients lifetime risk is 20% or greater. This exam was interpreted at Station ID: [id number]. NOTE: For mammograms, a report in lay terms will be sent to the patient. Approximately 15% of breast malignancies will not be visualized mammographically. In the management of a palpable breast mass, a negative mammogram must not discourage biopsy of a clinically suspicious lesion. Electronically Signed By: Yan brito/sp:04/07/2023 07:55:35 letter sent: No_Letter ACR BI-RADS Category 1: Negative 3341F PARENCHYMAL PATTERN: (A) - The breast(s) demonstrate(s) scattered fibroglandular densities. BI-RADS CATEGORY: (1) - 1 Mammogram [id number] 1 year screening LATERALITY: (B)
== END 2023-04-06 14:24 | disposition home or self-care (01) ==
LOC: DI 14:23
DX: Z12.31 Encounter for screening mammogram for malignant neoplasm of breast (principal)

== ENCOUNTER 2023-08-31 12:29 | Outpatient (CLI) | payer BC, OTHER ==
[2023-08-31 18:08] LABS: ALBUMIN 4.3 g/dL (3.2-5.5); ALBUMIN/GLOBULIN RATIO 1.6 (1.0-2.2); ALKALINE PHOSPHATASE 47 IU/L (42-121); ALT ALANINE AMINOTRANSFERASE 47 IU/L (10-60); AST ASPARTATE AMINOTRANSFERASE 26 IU/L (10-42); BILIRUBIN,TOTAL 0.6 mg/dL (0.2-1.0); BUN - BLOOD UREA NITROGEN 19 mg/dL (6-20); CALCIUM 10.4 mg/dL (8.5-10.3); CARBON DIOXIDE - CO2 31 mmol/L (21-32); CHLORIDE 104 mmol/L (101-111); CHOL/HDL RATIO 2.4 (<4.4); CHOLESTEROL 160 mg/dL; GFR - MDRD 68 (>89); GLUCOSE 134 mg/dL (74-104); HDL CHOLESTEROL 67 mg/dL; LDL CHOLESTEROL,CALCULATED 78 mg/dL; LDL/HDL RATIO 1.2 (<4.4); POTASSIUM 4.4 mmol/L (3.5-4.5); SODIUM 140 mmol/L (135-145); TRIGLYCERIDES 75 mg/dL (48-352); VLDL CHOLESTEROL 15 mg/dL
[2023-08-31 20:35] LABS: ESTIMATED AVERAGE GLUCOSE 143 mg/dL (70-100); HEMOGLOBIN A1c% 6.6 % (4.27-6.07)
== END 2023-08-31 12:30 | disposition home or self-care (01) ==
LOC: LAB.N 12:29
PROVIDERS: ATTEND Physician Assistant Medical
DX: E11.9 Type 2 diabetes mellitus without complications (principal)
CPT/HCPCS: 36415; 80053; 80061; 83036; 83721

== ENCOUNTER 2024-05-16 11:41 | Emergency (ER) | payer BC, OTHER ==
[2024-05-16 12:06] VITALS: BP 119/66; O2SAT 99
--- NOTE | 2024-05-16 13:02 | Ultrasound Report ---
PROCEDURE: Duplex Ext Veins Left INDICATIONS: pain and redness TECHNIQUE: Real-time imaging, as well as color and pulse Doppler interrogation, were performed of the lower extr emity deep veins from the inguinal ligament to the popliteal fossa. Attempted visualization of the ca lf veins was performed. COMPARISON: None. FINDINGS: Thrombus is present within the left common femoral vein extending to the gastroesophageal j unction. Thrombus is also identified in the greater saphenous vein and its branches extending to the distal calf. Age are not well seen secondary to patient body habitus and edema. There is lack of comp ressibility. IMPRESSION: Thrombus is present at the common femoral/greater saphenous vein junction with thrombus extending int o the common femoral vein. In addition superficial thrombus is present in the greater saphenous vein and branches extending to t he distal calf. Reviewed by: Mona Limon MD on 05/16/2024 1:01 PM PDT Approved by: Mona Limon MD on 05/16/2024 1:01 PM PDT Station ID: [id number]
--- NOTE | 2024-05-16 13:16 | ED Physician Documentation ---
PD HPI LOWER EXT INJURY - Stated complaint Stated Complaint: LT LEG PX,SWELLING - Chief complaint Chief Complaint: Ext Problem - History obtained from History obtained from: Patient - History of Present Illness PD HPI LOW EXT INJURY LOCATION: Left, Lower leg, Thigh Type of injury: No: Fall, Twist Where injury occurred: Other (no noted injury. Developed tenderness and redness anterior lower leg to the anterior thigh area gradually. Went to walk in and Dx with superficial phlebitis. Told to go to ER if worsens. 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 - Present Medications Home Medications: Ambulatory Orders Medication Instructions Recorded Confirmed Escitalopram [Lexapro] 10 mg PO DAILY 06/12/17 10/17/22 Levothyroxine [Synthroid] 75 mcg PO QDAC 06/12/17 10/17/22 Losartan [Cozaar] 50 mg PO DAILY 06/12/17 10/17/22 cloNIDine [Catapres] 0.1 mg PO ONCE 06/12/17 10/17/22 Amlodipine Besylate [Norvasc] See Rx Instructions .ROUTE .COMPLEX 10/17/22 10/17/22 Dextroamphetamine/Amphetamine See Rx Instructions .ROUTE .COMPLEX 10/17/22 10/17/22 [Adderall 20 mg Tablet] Potassium Bicarbonate See Rx Instructions .ROUTE .COMPLEX 10/17/22 10/17/22 [K-Effervescent] Spironolactone [Aldactone] See Rx Instructions .ROUTE .COMPLEX 10/17/22 10/17/22 traZODone [Desyrel] See Rx Instructions .ROUTE .COMPLEX 10/17/22 10/17/22 Apixaban [Eliquis] 5 mg PO BID #60 tablet 05/16/24 Diclofenac Sodium 1% Gel [Voltaren 2 gm TOP TID #50 gm 05/16/24 Gel] - Allergies Allergies/Adverse Reactions: Allergies Allergy/AdvReac Type Severity Reaction Status Date / Time No Known Drug Allergies Allergy Verified 05/16/24 11:58 - Social History Does the pt smoke?: No Smoking Status: Never smoker Does the pt drink ETOH?: Yes Does the pt have substance abuse?: No PD ED PE NORMAL - Vitals Vital signs reviewed: Yes - General General: Alert and oriented X 3, No acute distress, Well developed/nourished - Cardiac Cardiac: RRR, No murmur - Respiratory Respiratory: No respiratory distress, Clear bilaterally - Derm Derm: Normal color, Warm and dry - Extremities Extremities: Other (left leg with mild edema around ankle and lower leg. Mostly with tenderness mid to upper anterior lower leg to anterior lower thigh, with linear area of firm/tenderness and some redness c/w phlebitis. Some tender medial thigh. 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 ) PD Medical Decision Making - ED course Complexity details: reviewed results, considered differential (superficial phleibits without notable injury. No skin lesions. Increased and now just getting to extend to deeper veins, so will start DOAC. ), d/w patient Departure - Departure Disposition: 01 Home, Self Care Clinical Impression: Superficial phlebitis, DVT (deep venous thrombosis), Leg swelling Condition: Stable Record reviewed to determine appropriate education?: Yes Instructions: ED DVT, ED Phlebitis Superficial Follow-Up: [facility] PA-C [Primary Care Provider] - Prescriptions: Apixaban [Eliquis] 5 mg PO BID #60 tablet Diclofenac Sodium 1% Gel [Voltaren Gel] 2 gm TOP TID #50 gm Comments: Start the blood thinner Eliquis 2 tablets twice daily for the first 7 days and then 1 tablet twice daily continued after that. Warm towels to the phlebitis area a few times daily to help soften it. You can use Tylenol 500 to 650 mg 4 times daily for pains. You could use a topical NSAID diclofenac along the phlebitis area 2-3 times daily to help locally as well. I sent prescription to preferred pharmacy. Follow-up with your primary care in about 1- 1 1/2 weeks or so. Call for an appointment. Forms: PCP List Discharge Date/Time: 05/16/24 14:43
[2024-05-16] MEDS: APIXABAN 5 MG TABLET PO STA (14:31)
[2024-05-16] MEDS: ACETAMINOPHEN 500 MG TABLET PO STA (14:31)
== END 2024-05-16 14:43 | disposition home or self-care (01) ==
LOC: ED 11:41
DX: I80.02 Phlebitis and thrombophlebitis of superficial vessels of left lower extremity (principal); I80.202 Phlebitis and thrombophlebitis of unspecified deep vessels of left lower extremity
CPT/HCPCS: 93971; 99283; 99284; A9270

== ENCOUNTER 2024-05-17 15:19 | Emergency (ER) | payer BC, OTHER ==
[2024-05-17 15:31] VITALS: O2SAT 99
--- NOTE | 2024-05-17 16:55 | ED Physician Documentation ---
History of Present Illness - Stated complaint Stated Complaint: BILAT LEG PX - Chief complaint Chief Complaint: Ext Problem - Additonal information Additional information: 63-year-old female was here yesterday was diagnosed with a DVTs to her left lower extremity. Patient comes back in today for feeling similar pain on her right lower extremity. She has a history of type 2 diabetes says that currently her sugars are well-controlled she says that she has a family history of a clotting disorder in her father side unsure what kind and says that she was tested for and it came back negative. Also has history of hypertension, hypothyroidism. No shortness of breath no chest pain she says that she has lymph node issues that cause her legs to not properly drain and has chronic bilateral lower extremity pitting edema. 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 - Present Medications Home Medications: Ambulatory Orders Medication Instructions Recorded Confirmed Escitalopram [Lexapro] 10 mg PO DAILY 06/12/17 10/17/22 Levothyroxine [Synthroid] 75 mcg PO QDAC 06/12/17 10/17/22 Losartan [Cozaar] 50 mg PO DAILY 06/12/17 10/17/22 cloNIDine [Catapres] 0.1 mg PO ONCE 06/12/17 10/17/22 Amlodipine Besylate [Norvasc] See Rx Instructions .ROUTE .COMPLEX 10/17/22 10/17/22 Dextroamphetamine/Amphetamine See Rx Instructions .ROUTE .COMPLEX 10/17/22 10/17/22 [Adderall 20 mg Tablet] Potassium Bicarbonate See Rx Instructions .ROUTE .COMPLEX 10/17/22 10/17/22 [K-Effervescent] Spironolactone [Aldactone] See Rx Instructions .ROUTE .COMPLEX 10/17/22 10/17/22 traZODone [Desyrel] See Rx Instructions .ROUTE .COMPLEX 10/17/22 10/17/22 Apixaban [Eliquis] 5 mg PO BID #60 tablet 05/16/24 Diclofenac Sodium 1% Gel [Voltaren 2 gm TOP TID #50 gm 05/16/24 Gel] - Allergies Allergies/Adverse Reactions: Allergies Allergy/AdvReac Type Severity Reaction Status Date / Time No Known Drug Allergies Allergy Verified 05/17/24 15:28 - Social History Does the pt smoke?: No Smoking Status: Never smoker Does the pt drink ETOH?: Yes Does the pt have substance abuse?: No PD ED PE NORMAL - Vitals Vital signs reviewed: Yes - General General: Alert and oriented X 3, No acute distress, Well developed/nourished - Derm Derm: Normal color, Warm and dry, No rash, Other - Extremities Extremities: Other (Right inner thigh tenderness with palpation no unilateral calf tenderness bilateral 2+ pitting edema.) Results - Vitals Vitals: Vital Signs - 24 hr 05/17/24 05/17/24 15:25 17:58 Temperature 36.4 C L Heart Rate 72 66 Respiratory 18 18 Rate Blood Pressure 146/72 H 133/70 H O2 Saturation 99 99 Oxygen O2 Source Room air - Rads (name of study) Right lower extremity venous duplex Relevant Findings:: Final report received, EMP independent interpretation of test, Other (No DVT of the visualized lower extremity) PD Medical Decision Making - ED course ED course: 63-year-old female presents emergency department for right lower extremity pain and swelling. Patient was concerned about a possible DVT in the right lower extremity as she was recently diagnosed with a DVT in her left lower extremity. She has already been taking Eliquis and has been taking the appropriately prescribed doses of Eliquis starting this morning. She has not missed any doses. Venous duplex is completed of her right lower extremity and she does not have any DVT. Patient says that she has been having workup with her primary care provider [facility] about her leg cramps. At this point in time no further intervention is warranted patient told to continue her Eliquis return precautions given all questions answered patient safe for discharge she was offered some Tylenol ibuprofen but kindly declined said that she had some at home and would take some if needed at home. Departure - Departure Disposition: 01 Home, Self Care Clinical Impression: Right leg pain Instructions: Venogram, ED DVT Comments: Thank you for trusting us with your care I have attached the ultrasound results that were complete yesterday so that you are able to see more specifically where they have DVTs in your left lower extremity are. We have completed an ultrasound of your right lower extremity we are not seeing any DVTs. Please follow-up with your primary care provider to let her know about today and yesterday's ER visit and states there is any further outpatient specialty labs or studies that should be performed.Please come back to the ER if you have any shortness of breath, chest pain or any other worsening symptoms. Wishing you a speedy recovery. PT NAME: VEE RAMOS MR#: [id number] REG ER/ED AGE: 63 CI DT/TM: 05/16/24 PCP: [facility] PA-C : 1960 ATT: SEX: F ORD: ED PHYSICIAN EXAM: [id number] US/VENL ([id number]) PROCEDURE: Duplex Ext Veins Left INDICATIONS: pain and redness TECHNIQUE: Real-time imaging, as well as color and pulse Doppler interrogation, were performed of the lower extremity deep veins from the inguinal ligament to the popliteal fossa. Attempted visualization of the calf veins was performed. COMPARISON: None. FINDINGS: Thrombus is present within the left common femoral vein extending to the gastroesophageal junction. Thrombus is also identified in the greater saphenous vein and its branches extending to the distal calf. Age are not well seen secondary to patient body habitus and edema. There is lack of compressibility. IMPRESSION: Thrombus is present at the common femoral/greater saphenous vein junction with thrombus extending into the common femoral vein. In addition superficial thrombus is present in the greater saphenous vein and b ranches extending to the distal calf. Forms: PCP List Discharge Date/Time: 05/17/24 18:00
[2024-05-17 18:02] VITALS: BP 133/70
--- NOTE | 2024-05-17 18:13 | Ultrasound Report ---
PROCEDURE: Duplex Ext Veins Right INDICATIONS: swelling/pain TECHNIQUE: Real-time imaging, as well as color and pulse Doppler interrogation, were performed of the lower extr emity deep veins from the inguinal ligament to the popliteal fossa. Attempted visualization of the ca lf veins was performed. COMPARISON: None. FINDINGS: The deep veins are normally compressible, and free of intraluminal thrombus. Color and pu lse Doppler demonstrate normal phasic intraluminal flow. There is normal augmentation response to di stal compression maneuver. IMPRESSION: No deep venous thrombosis of the visualized lower extremity. Agree with preliminary interpretation provided to the ordering provider by the ultrasound technologis t. Reviewed by: Juana Valadez MD on 05/17/2024 6:12 PM PDT Approved by: Juana Valadez MD on 05/17/2024 6:12 PM PDT Station ID: [id number]
== END 2024-05-17 18:00 | disposition home or self-care (01) ==
LOC: ED 15:19
DX: M79.604 Pain in right leg (principal); R22.41 Localized swelling, mass and lump, right lower limb
CPT/HCPCS: 99283; 99284

== ENCOUNTER 2024-05-31 12:25 | Outpatient (CLI) | payer BC, OTHER ==
[2024-05-31 18:17] LABS: BASOPHILS % (AUTO) 0.8 %; EOSINOPHILS # (AUTO) 0.1 10^3/uL (0.0-0.7); EOSINOPHILS % (AUTO) 1.7 %; HCT - HEMATOCRIT 39.9 % (37.0-47.0); HGB - HEMOGLOBIN 12.6 g/dL (12.0-16.0); LYMPHOCYTES # (AUTO) 1.3 10^3/uL (1.5-3.5); LYMPHOCYTES % (AUTO) 36.7 %; MEAN CORPUSCULAR HEMOGLOBIN 29.2 pg (27.0-31.0); MEAN CORPUSCULAR HGB CONC 31.6 g/dL (32.0-36.0); MEAN CORPUSCULAR VOLUME 92.4 fL (81.0-99.0); MEAN PLATELET VOLUME 10.3 fL (7.9-10.8); MONOCYTES # (AUTO) 0.3 10^3/uL (0.0-1.0); NEUTROPHILS # (AUTO) 1.9 10^3/uL (1.5-6.6); NEUTROPHILS % (AUTO) 52.5 %; PLT - PLATELET COUNT 250 10^3/uL (130-450); RED BLOOD COUNT 4.32 10^6/uL (4.20-5.40); RED CELL DISTRIBUTION WIDTH 12.2 % (12.0-15.0); WHITE BLOOD COUNT 3.6 x10^3/uL (4.8-10.8)
[2024-05-31 18:36] LABS: ALBUMIN 4.2 g/dL (3.2-5.5); ALBUMIN/GLOBULIN RATIO 1.4 (1.0-2.2); ALKALINE PHOSPHATASE 47 IU/L (42-121); ALT ALANINE AMINOTRANSFERASE 15 IU/L (10-60); AST ASPARTATE AMINOTRANSFERASE 13 IU/L (10-42); BILIRUBIN,TOTAL 0.6 mg/dL (0.2-1.0); BUN - BLOOD UREA NITROGEN 17 mg/dL (6-20); CALCIUM 9.8 mg/dL (8.5-10.3); CARBON DIOXIDE - CO2 26 mmol/L (21-32); CHLORIDE 108 mmol/L (101-111); CHOL/HDL RATIO 2.5 (<4.4); CHOLESTEROL 132 mg/dL; CREATININE 0.9 mg/dL (0.6-1.3); GFR - MDRD 77 (>89); GLUCOSE 131 mg/dL (74-104); HDL CHOLESTEROL 52 mg/dL; LDL CHOLESTEROL,CALCULATED 68 mg/dL; LDL/HDL RATIO 1.3 (<4.4); POTASSIUM 4.4 mmol/L (3.5-4.5); SODIUM 139 mmol/L (135-145); TOTAL PROTEIN 7.2 g/dL (6.4-8.9); TRIGLYCERIDES 59 mg/dL; VLDL CHOLESTEROL 12 mg/dL
[2024-05-31 18:37] LABS: CREATININE,URINE 221.1 mg/dL; MICROALBUM/CREATININE RATIO,UR 4.1 ug/mg (<30.0); MICROALBUMIN,URINE 0.9 mg/dL
[2024-05-31 18:46] LABS: THYROID STIMULATING HORMONE 0.02 uIU/mL (0.34-5.60)
[2024-05-31 20:24] LABS: ESTIMATED AVERAGE GLUCOSE 146 mg/dL (70-100); HEMOGLOBIN A1c% 6.7 % (4.27-6.07)
== END 2024-05-31 12:26 | disposition home or self-care (01) ==
LOC: LAB.N 12:25
PROVIDERS: ATTEND Physician Assistant Medical
DX: E11.9 Type 2 diabetes mellitus without complications (principal); E03.9 Hypothyroidism, unspecified; I10 Essential (primary) hypertension
CPT/HCPCS: 36415; 80053; 80061; 82043; 82570; 83036; 83721; 84439; 84443; 85025

== ENCOUNTER 2024-06-01 15:49 | Outpatient (CLI) | payer BC, OTHER ==
--- NOTE | 2024-06-01 22:57 | Ultrasound Report ---
PROCEDURE: Duplex Ext Veins Left INDICATIONS: L DVT TECHNIQUE: Real-time imaging, as well as color and pulse Doppler interrogation, were performed of the lower extr emity deep veins from the inguinal ligament to the popliteal fossa. Attempted visualization of the ca lf veins was performed. COMPARISON: 05/17/2024 and 05/16/2024. FINDINGS: The deep veins are normally compressible, and free of intraluminal thrombus. Color and pu lse Doppler demonstrate normal phasic intraluminal flow. There is normal augmentation response to di stal compression maneuver. Previously described thrombosis within junction of greater saphenous vein and common femoral vein is no longer present. Superficial venous thrombosis within greater saphenous vein is again seen extending to the distal lower leg is not significantly changed from prior study. IMPRESSION: Interval resolution of venous thrombosis at the junction of greater saphenous vein and common femoral vein. No evidence of DVT is seen in visualized left lower extremity veins on the current study. Stable superficial nonocclusive venous thrombosis in greater saphenous vein branches of left lower le g. Reviewed by: George Coleman MD on 06/01/2024 10:55 PM PDT Approved by: George Coleman MD on 06/01/2024 10:55 PM PDT Station ID: [id number]
== END 2024-06-01 15:50 | disposition home or self-care (01) ==
LOC: DI 15:49
PROVIDERS: ATTEND Family Medicine
DX: I82.812 Embolism and thrombosis of superficial veins of left lower extremity (principal)

== ENCOUNTER 2024-06-04 13:31 | Outpatient (CLI) | payer BC, OTHER ==
[2024-06-04] MEDS ORDERED: iohexoL-300 100 ML VIAL ONE (13:45)
[2024-06-04] MEDS: iohexoL-300 100 ML VIAL IVP ONE (14:42)
--- NOTE | 2024-06-04 18:10 | CT Report ---
PROCEDURE: Chest W INDICATIONS: PULMONARY NODULE CONTRAST: 100ml [id number] TECHNIQUE: After the administration of intravenous contrast, a CT scan of the chest was performed. Images were recorded and evaluated at appropriate window settings. Reformats: axial MIP of the chest, coronal and sagittal. For radiation dose reduction, the following was used: automated exposure control, adjustme nt of mA and/or kV according to patient size. COMPARISON: 04/06/2023, 11/21/2021 FINDINGS: Image quality: Diagnostic. Chest wall and lower neck: No thyroid nodule which requires sonographic follow up. No breast mass. No axillary or supraclavicular adenopathy by size. Lungs and pleura: As previously demonstrated, there is a left upper lobe pulmonary nodule seen, as de monstrated on series 4 image 30, measuring 6 mm. This is unchanged compared to prior studies, dating back to 2021. No new pulmonary nodules are seen. No consolidation. No pleural effusions. No pneumothorax. Mediastinum: Advanced coronary artery calcification can be seen. Heart size is normal. No pericardial effusion. No large vessel abnormality. No mediastinal adenopathy by size criteria. A small hiatal h ernia is incidentally noted. Bones: No aggressive osseous abnormality. Age-appropriate degenerative changes are seen. There is ac centuated thoracic kyphosis. Upper Abdomen: A water density renal cysts can be seen posteriorly. The visualized portions of the up per abdominal structures are otherwise within normal limits. IMPRESSION: There is a stable 6 mm left upper lobe nodule. Given its stability over time, this is attributed to a benign process. Additional findings: Advanced coronary artery calcification Small hiatal hernia Simple right renal cyst Reviewed by: Bruce Estrada MD on 06/04/2024 5:09 PM AKDT Approved by: Bruce Estrada MD on 06/04/2024 5:09 PM AKDT Station ID: [id number]
== END 2024-06-04 13:32 | disposition home or self-care (01) ==
LOC: DI 13:31
PROVIDERS: ATTEND Physician Assistant Medical
DX: R91.1 Solitary pulmonary nodule (principal)
CPT/HCPCS: 71260; Q9967

== ENCOUNTER 2024-06-06 10:19 | Outpatient (CLI) | payer BC, OTHER ==
--- NOTE | 2024-06-07 09:25 | Mammography Report ---
BILATERAL DIGITAL SCREENING MAMMOGRAM 3D/2D: 06/06/2024 CLINICAL: Routine screening. Family history of breast cancer. Comparison is made to exams dated: 04/06/2023 mammogram and 01/30/2020 mammogram - [facility]. There are scattered areas of fibroglandular density in both breasts (category b / 25%-50% glandular t issue). No significant masses, calcifications, or other findings are seen in either breast. There has been no significant interval change. IMPRESSION: NEGATIVE There is no mammographic evidence of malignancy. A 1 year screening mammogram is recommended. Based on the Tyrer Cuzick model (a risk assessment model) the patient's lifetime risk is 10.6% and he r 10 year risk is 4.6%. According to the ACR, ACS, and NCCN guidelines, an annual breast MRI exam catina ng with mammogram is recommended if the patient's lifetime risk is 20% or greater. This exam was interpreted at Station ID: [id number]. NOTE: For mammograms, a report in lay terms will be sent to the patient. Approximately 15% of breast malignancies will not be visualized mammographically. In the management of a palpable breast mass, a negative mammogram must not discourage biopsy of a clinically suspicious lesion. Electronically Signed By: Yan brito/sp:06/06/2024 11:43:49 letter sent: No_Letter ACR BI-RADS Category 1: Negative 3341F PARENCHYMAL PATTERN: (A) - The breast(s) demonstrate(s) scattered fibroglandular densities. BI-RADS CATEGORY: (1) - 1 RECOMMENDATION: (ANNUAL) - Recommend routine annual screening mammography. [id number] 1 year screening LATERALITY: (B)
== END 2024-06-06 10:20 | disposition home or self-care (01) ==
LOC: DI.N 10:19
DX: Z12.31 Encounter for screening mammogram for malignant neoplasm of breast (principal); R92.323 Mammographic fibroglandular density, bilateral breasts; Z80.3 Family history of malignant neoplasm of breast